=== PATIENT | male | born 1930 | race Caucasian/White ===

== ENCOUNTER 2016-09-02 20:11 | Inpatient (IN) | payer MEDICAID ==
[~2016-09-02] VITALS: Ht 160 cm; Wt 66.7 kg
[~2016-09-02 20:11] MED LIST: ACET500C54 PO; ASPI81CT2 PO; CARB1ODT4 PO; FINA5TAB1 PO; METF850T PO; SIMV20TA1 PO; TAMS0.4C96 PO; VAS10 PO
[2016-09-02 20:31] VITALS: BP 133/54
--- NOTE | 2016-09-02 21:00 | NUR ---
Patient ambulated to bed 3 at this time.
--- NOTE | 2016-09-02 21:15 | NUR ---
85Y M BIB FAMILY FOR SOB / DIZZINESS X 1 WEEK; ACCU CK IN TRIAGE : 116, EKG DONE IN TRIAGE PT DENIES ANY N/V/D AT THE MOMENT. PT BREATHING IS UNLABORED AND CLEAR BILAT. PT HAS IRREGULAR HEARTBEAT. MED HX: PARKINSON/ASTHMA/DIABETES/PROSTATE AND DEPRESSION
[2016-09-02] MEDS ORDERED: NACL 0.9% 1,000 ML IV ONE (21:30)
[2016-09-02 21:51] LABS: BASOPHILS # (AUTO) 0.1 K/uL (0.00-0.22); BASOPHILS % (AUTO) 1.3 % (0.0-2.0); EOSINOPHILS # (AUTO) 0.4 K/uL (0-0.4); EOSINOPHILS % (AUTO) 3.7 % (0.0-4.0); HEMATOCRIT 39.7 % (36-52); HEMOGLOBIN 12.9 g/dL (12.0-18.0); LYMPHOCYTES # (AUTO) 2.5 K/uL (2.0-11.5); LYMPHOCYTES % (AUTO) 25.4 % (20.5-51.1); MEAN CORPUSCULAR HEMOGLOBIN 29 pg (27-31); MEAN CORPUSCULAR HGB CONC 33 g/dL (33-37); MEAN CORPUSCULAR VOLUME 90 fL (80-94); MONOCYTES % (AUTO) 10.1 % (1.7-9.3); NEUTROPHILS # (AUTO) 5.6 K/uL (1.8-7.7); NEUTROPHILS % (AUTO) 59.5 % (42.2-75.2); PLATELET COUNT (AUTO) 313 K/uL (140-450); RED BLOOD CELL COUNT(AUTO) 4.43 MIL/uL (4.20-6.10); RED CELL DISTRIBUTION WIDTH 14.4 % (11.6-13.7); WHITE BLOOD COUNT (AUTO) 9.6 K/uL (4.8-10.8)
[2016-09-02 22:05] LABS: ANION GAP 11.7 (8-16); CALCIUM 8.5 mg/dL (8.5-10.1); CARBON DIOXIDE 29.8 mmol/L (21-32); CHLORIDE 106 mmol/L (98-107); CREATININE 1.1 mg/dL (0.7-1.3); GLUCOSE 99 mg/dL (74-106); POTASSIUM 5.5 mmol/L (3.5-5.1); SODIUM SERUM 142 mmol/L (136-145); UREA NITROGEN, BLOOD 18 mg/dL (7-18)
[2016-09-02 22:10] LABS: PARTIAL THROMBOPLASTIN TIME 28.2 secs (22-35.6); PROTHROMBIN TIME 10.4 secs (10.8-13.4)
[2016-09-02 22:11] LABS: ALANINE AMINOTRANSFERASE 16 U/L (16-63); ALBUMIN 3.6 g/dL (3.4-5.0); ALKALINE PHOSPHATASE 72 U/L (46-116); ASPARTATE AMINOTRANSFERASE 13 U/L (15-37); TOTAL BILIRUBIN 0.4 mg/dL (0.0-1.0)
[2016-09-02] MEDS ORDERED: CALCIUM CHLORIDE 10% 100 MG/ML SYR IVP ONE (22:15)
[2016-09-02] MEDS ORDERED: SODIUM POLYSTYRENE 15 GM/60 ML UDBTL PO ONE (22:15)
[2016-09-02 22:16] LABS: LACTIC ACID 2.4 mmol/L (0.4-2.0)
[2016-09-02] MEDS ORDERED: NACL 0.9% 2,000 ML IV ONE (22:20)
[2016-09-02] MEDS: NACL 0.9% 1,000 ML IV SCH (22:39)
[2016-09-02] MEDS ORDERED: HYDROcodone/APAP 7.5/325 MG 1 TAB PO PRN (22:40)
[2016-09-02] MEDS ORDERED: ONDANSETRON 4 MG/2 ML VIAL IM/IVP PRN (22:40)
[2016-09-02] MEDS ORDERED: MORPHINE SULFATE 2 MG/ML SYR IVP PRN (22:40)
[2016-09-02] MEDS ORDERED: DOCUSATE SODIUM 100 MG GELCAP PO PRN (22:40)
[2016-09-02] MEDS ORDERED: ACETAMINOPHEN 325 MG TAB PO PRN (22:40)
--- NOTE | 2016-09-02 23:13 | NUR ---
Patient will be admitted to care of DR CLEMENS. Admited to TELE 106A. Will go to room 106A. Belongings list completed. Report to AV[facility]IL [facility] .
[2016-09-02 23:16] LABS: APPEARANCE,URINE CLEAR (CLEAR); BILIRUBIN,URINE NEGATIVE (NEGATIVE); BLOOD, URINE NEGATIVE (NEGATIVE); COLOR,URINE YELLOW (YELLOW); LEUKOCYTE ESTERASE ,URINE NEGATIVE (NEGATIVE); NITRITE, URINE NEGATIVE (NEGATIVE); PH,URINE 5.5 (5.0-9.0); PROTEIN,URINE 2+ (NEGATIVE); UGLUCOSE NEGATIVE (NEGATIVE); UROBILINOGEN,URINE 0.2 EU/dL (0.2 - 1)
[2016-09-02 23:34] LABS: BACTERIA,URINE RARE /HPF (None Seen); HYALINE CASTS, URINE 0-3 /LPF (None Seen); MUCUS,URINE 3+ /LPF (None Seen); RBC,URINE 0-5 (RARE) /HPF (0-5); SQUAMOUS EPITHELIAL CELL,UR 0-3 (FEW) /LPF (0-3 (FEW)); WBC,URINE 0-5 (RARE) /HPF (0-5)
[2016-09-02 23:50] VITALS: BP 148/68
--- NOTE | 2016-09-02 23:50 | NUR ---
Admitted from ER, with chief complaint of SHORTNESS OF BREATH, DX SOB. PT'S FAMILY AT BEDSIDE. ADMISSION ASSESSMENT COMPLETED WITH MANAGER GRAPHIC PHONE. 85 y/o, Male, Cooperative, AOX3, ABLE TO VERBALIZE NEEDS. GENERALIZED WEAKNESS NOTED, MORE ON RIGHT ARM WEAKNESS. PT DENIES CHEST PAIN AT THIS TIME. PT DENIES SOB OR S/S OF ACUTE DISTRESS. HOME HEALTH AIDE CAREGIVER IN PLACE. MULTIPLE DRY SCABS AND DISCOLORATION NOTED ON BACK AND BUTTOCKS. DRY SCAB ON LEFT TOE. IV ACCESS ASYMPTOMATIC, PATENT AND INTACT. REMAINING IVF INFUSING WELL. oriented to call light, bed, phone,television, bathroom, smoking policy, visiting hours, procedures, ID bracelet on. Belongings list checked. DISCUSSED AND REVIEWED PLAN OF CARE WITH PT AND PT'S FAMILY. PT VERBALIZED UNDERSTANDING. SAFETY MEASURES ENSURED. CALL LIGHT WITHIN REACH. WILL CONTINUE TO MONITOR.
[2016-09-03] MEDS ORDERED: INSULIN LISPRO SLIDING SCALE 100 UNITS/ML VIAL SUBQ PRN (01:05)
[2016-09-03] MEDS ORDERED: DEXTROSE 50% 50 ML SYR IVP PRN (01:05)
[2016-09-03] MEDS ORDERED: ALBUTEROL SULFATE/IPRATROPIU 3 ML SOL IH PRN ×2 (01:05→12:53)
[2016-09-03 01:27] LABS: CHOL/HDL RATIO 2.6 (1-4.5); PHOSPHORUS 4.7 mg/dL (2.5-4.9)
[2016-09-03 01:28] LABS: FREE T4 (FREE THYROXINE) 1.14 ng/dL (0.76-1.46); THYROID STIMULATING HORMONE 0.54 uIU/mL (0.34-3.74)
--- NOTE | 2016-09-03 02:00 | NUR ---
PT HAD A LARGE, LOOSE BM. PT CLEANED. PT TURNED AND REPOSITIONED, OFFLOADED PRESSURE AREAS. PT TOLERATED WELL. ALL NEEDS MET. SAFETY MEASURES ENSURED. CALL LIGHT WITHIN REACH.
[2016-09-03 03:05] LABS: BLOOD GAS PCO2 37.2 mmHg (20-50)
[2016-09-03 03:06] LABS: BLOOD GAS BASE EXCESS -4.9 mmol/L (-2.0-2.0); BLOOD GAS HCO3 20.1 mmol/L; BLOOD GAS O2 SAT% 95.8 % (92.0-98.5); BLOOD GAS PO2 86.5 mmHg
--- NOTE | 2016-09-03 03:19 | NUR ---
ABG DONE WITH NO INCIDENT. RESULTS GIVEN TO DR DIAL. WILL CONTINUE TO MONITOR.
[2016-09-03 04:00] VITALS: BP 153/75
--- NOTE | 2016-09-03 04:00 | NUR ---
PT SLEEPING. CONDITION STABLE. ALL NEEDS MET. SAFETY MEASURES ENSURED. CALL LIGHT WITHIN REACH.
--- NOTE | 2016-09-03 05:00 | NUR ---
NOTIFIED BY CHIEF ELECTRICIAN THAT HR WENT DOWN TO 37. CHECKED ON PT, PT IS SLEEPING, VS TAKEN; TEMP 97.7, BP 153/75, HR 53, RR 16, SPO2 98% AT ROOM AIR. CONDITION STABLE. WILL NOTIFY MD, WILL CONTINUE TO MONITOR.
--- NOTE | 2016-09-03 05:40 | NUR ---
PT TAKEN TO CT. PT ABLE TO TRANSFER FROM BED TO CT INDEPENDENTLY. PT TOLERATED WELL. PT TAKEN BACK TO BED. CONDITION STABLE. ALL NEEDS MET. SAFETY MEASURES ENSURED. CALL LIGHT WITHIN REACH.
--- NOTE | 2016-09-03 06:25 | NUR ---
RECEIVED CALL FROM [facility]. RESULTS FROM CT HEAD RECEIVED. CALLED DR COKER, MADE MD AWARE OF RESULTS OF CT HEAD. ALSO MADE MD AWARE OF NPO ORDER AT THIS TIME. MD TO CLARIFY ORDER. NO FURTHER ORDERS RECEIVED.
[2016-09-03 06:50] LABS: BASOPHILS # (AUTO) 0.3 K/uL (0.00-0.22); BASOPHILS % (AUTO) 2.9 % (0.0-2.0); EOSINOPHILS # (AUTO) 0.2 K/uL (0-0.4); EOSINOPHILS % (AUTO) 2.5 % (0.0-4.0); HEMATOCRIT 38.6 % (36-52); HEMOGLOBIN 12.8 g/dL (12.0-18.0); LYMPHOCYTES # (AUTO) 1.5 K/uL (2.0-11.5); LYMPHOCYTES % (AUTO) 15.7 % (20.5-51.1); MEAN CORPUSCULAR HEMOGLOBIN 30 pg (27-31); MEAN CORPUSCULAR HGB CONC 33 g/dL (33-37); MEAN CORPUSCULAR VOLUME 90 fL (80-94); NEUTROPHILS # (AUTO) 6.7 K/uL (1.8-7.7); NEUTROPHILS % (AUTO) 68.9 % (42.2-75.2); PLATELET COUNT (AUTO) 306 K/uL (140-450); RED CELL DISTRIBUTION WIDTH 14.3 % (11.6-13.7); WHITE BLOOD COUNT (AUTO) 9.7 K/uL (4.8-10.8)
[2016-09-03] MEDS: BLOOD GLUCOSE MONITORING 1 DEV DEV FS SCH ×4 (06:51→20:32)
--- NOTE | 2016-09-03 06:53 | NUR ---
BLOOD SUGAR 103, NO INSULIN COVERAGE NEEDED. ALL NEEDS MET. SAFETY MEASURES ENSURED. CALL LIGHT WITHIN REACH.
[2016-09-03 07:10] LABS: MAGNESIUM 1.6 mg/dL (1.8-2.4); PHOSPHORUS 3.3 mg/dL (2.5-4.9)
--- NOTE | 2016-09-03 07:10 | NUR ---
RECEIVED PATIENT REPORT AT BEDSIDE. PATIENT AWAKE, ALERT AND ORIENTED. NO S/S OF DISTRESS NOTED. NO C/O PAIN. PATIENT ON ROOM AIR. IV LINE NOTED TO THE RIGHT FOREARM WITH IVF INFUSING WELL. PATIENT ON TELE MONITORING. BED LOWERED WITH CALL LIGHT WITHIN REACH. WILL CONTINUE TO MONITOR
[2016-09-03 07:11] LABS: ANION GAP 12.8 (8-16); CALCIUM 8.4 mg/dL (8.5-10.1); CARBON DIOXIDE 26.9 mmol/L (21-32); CHLORIDE 108 mmol/L (98-107); CREATININE 0.9 mg/dL (0.7-1.3); GLUCOSE 111 mg/dL (74-106); POTASSIUM 4.7 mmol/L (3.5-5.1); SODIUM SERUM 143 mmol/L (136-145); UREA NITROGEN, BLOOD 14 mg/dL (7-18)
[2016-09-03] MEDS: ALBUTEROL SULFATE/IPRATROPIU 3 ML SOL IH SCH ×3 (07:35→19:48)
[2016-09-03 08:00] VITALS: BP 147/67
[2016-09-03] MEDS: ASPIRIN 81 MG TAB.CHEW PO SCH (08:50)
[2016-09-03] MEDS: CARBIDOPA/LEVODOPA 25/100 MG 1 TAB PO SCH ×2 (08:51→20:32)
[2016-09-03] MEDS: FINASTERIDE 5 MG TAB PO SCH (08:51)
[2016-09-03] MEDS: metFORMIN 850 MG TAB PO SCH ×3 (08:51→17:41)
[2016-09-03] MEDS: SIMVASTATIN 20 MG TAB PO SCH (08:51)
[2016-09-03] MEDS ORDERED: ENALAPRIL 10 MG TAB PO SCH (09:00)
[2016-09-03] MEDS ORDERED: LEVODOPA PO SCH (09:00)
[2016-09-03] MEDS ORDERED: CARBIDOPA PO SCH (09:00)
--- NOTE | 2016-09-03 09:13 | NUR ---
PATIENT HAS BEEN SCREENED AND CATEGORIZED MODERATE NUTRITION RISK. PATIENT WILL BE SEEN WITHIN 3-5 DAYS OF ADMISSION. 09/05/16-09/07/[address]
[2016-09-03] MEDS ORDERED: MAG SULF 2000 MG/WATER PREMIX 50 ML IV SCH (09:45)
--- NOTE | 2016-09-03 11:32 | NUR ---
P.T. NOTES INITIAL EVAL DONE; REFER TO EVAL FOR DETAILS; TRY STAIR TRNG NEXT TX IF ABLE; CALLED Pt's (KIERSTEN) #[phone] FOR FAMILY TRNG, CASE MGMT (ALEENA) COMMUNICATED, ABLE TO COME IN TOMORROW 09/04/16Wednesday 9 AM; FOLLOW UP TOMORROW.
[2016-09-03 12:00] VITALS: BP_SYST 133; BP_SYST 134; BP_SYST 139; BP_DIAS 65; BP_DIAS 69; BP_DIAS 75
[2016-09-03] MEDS ORDERED: PSEUDOEPHEDRINE 30 MG TAB PO PRN (14:45)
--- NOTE | 2016-09-03 14:50 | NUR ---
MADE DR HURLEY AWARE THAT PATIENT'S HR HAS GONE DOWN TO LOW 30s AT ONE POINT. ALSO INFORMED OF PATIENT'S C/O COUGH
[2016-09-03 16:00] VITALS: BP 112/66
--- NOTE | 2016-09-03 16:35 | NUR ---
PATIENT SEEN BY DR PAINTER
--- NOTE | 2016-09-03 19:11 | NUR ---
PATIENT REPORT GIVEN AT BEDSIDE. PATIENT ENDORSED IN STABLE CONDITION
--- NOTE | 2016-09-03 19:15 | NUR ---
RECEIVED REPORT FROM AM NURSE. PT RESTING IN BED, AOX4, ABLE TO VERBALIZE NEEDS. PT DENIES CHEST PAIN, SOB OR S/S OF ACUTE DISTRESS. SOCK TURNER IN PLACE. MULTIPLE SCABS AND DISCOLORATION NOTED. IV ACCESS ASYMPTOMATIC, PATENT AND INTACT. IVF INFUSING WELL. DISCUSSED AND REVIEWED PLAN OF CARE WITH PT. PT VERBALIZED UNDERSTANDING. ALL NEEDS MET. SAFETY MEASURES ENSURED. CALL LIGHT WITHIN REACH. WILL CONTINUE TO MONITOR.
[2016-09-03 20:00] VITALS: BP 132/55
--- NOTE | 2016-09-03 20:36 | NUR ---
BLOOD SUGAR 122, NO INSULIN COVERAGE NEEDED. ADMINISTERED DUE MEDICATIONS WITH EDUCATION. PT VERBALIZED UNDERSTANDING, TOLERATED MEDS WELL. ALL NEEDS MET. SAFETY MEASURES ENSURED. CALL LIGHT WITHIN REACH.
[2016-09-03] MEDS ORDERED: TAMSULOSIN 0.4 MG CAP PO SCH (21:00)
[2016-09-03] MEDS: NACL 0.9% 1,000 ML IV SCH (22:39)
[2016-09-04] VITALS: BP 137/65
--- NOTE | 2016-09-04 | NUR ---
PT SLEEPING. CONDITION STABLE. ALL NEEDS MET. SAFETY MEASURES ENSURED. CALL LIGHT WITHIN REACH. WILL CONTINUE TO MONITOR.
[2016-09-04 04:00] VITALS: BP 110/51
--- NOTE | 2016-09-04 04:39 | NUR ---
PT SLEEPING. CONDITION STABLE. ALL NEEDS MET. SAFETY MEASURES ENSURED. CALL LIGHT WITHIN REACH. WILL CONTINUE TO MONITOR.
[2016-09-04] MEDS: BLOOD GLUCOSE MONITORING 1 DEV DEV FS SCH ×2 (06:30→12:07)
--- NOTE | 2016-09-04 06:30 | NUR ---
BLOOD SUGAR 121, NO INSULIN COVERAGE NEEDED. ALL NEEDS MET. SAFETY MEASURES ENSURED. CALL LIGHT WITHIN REACH.
[2016-09-04 06:33] LABS: ANION GAP 12.8 (8-16); CALCIUM 7.7 mg/dL (8.5-10.1); CARBON DIOXIDE 26.3 mmol/L (21-32); CHLORIDE 105 mmol/L (98-107); CREATININE 0.8 mg/dL (0.7-1.3); GLUCOSE 108 mg/dL (74-106); POTASSIUM 4.1 mmol/L (3.5-5.1); SODIUM SERUM 140 mmol/L (136-145); UREA NITROGEN, BLOOD 9 mg/dL (7-18)
[2016-09-04 06:42] LABS: MAGNESIUM 1.6 mg/dL (1.8-2.4); PHOSPHORUS 3.9 mg/dL (2.5-4.9)
[2016-09-04] MEDS: ALBUTEROL SULFATE/IPRATROPIU 3 ML SOL IH SCH ×2 (07:18→12:51)
--- NOTE | 2016-09-04 07:21 | NUR ---
ENDORSED PLAN OF CARE TO AM NURSE. CONDITION STABLE.
--- NOTE | 2016-09-04 07:21 | NUR ---
RECEIVED PATIENT REPORT AT BEDSIDE. PATIENT CURRENTLY RECEIVING BREATHING TX. NO S/S OF DISTRESS NOTED. NO C/O PAIN AT THIS TIME. PATIENT ON TELE MONITORING. BED LOWERED WITH CALL LIGHT WITHIN REACH. WILL CONTINUE TO MONITOR
[2016-09-04 08:00] VITALS: BP 126/64
[2016-09-04] MEDS: ASPIRIN 81 MG TAB.CHEW PO SCH (08:25)
[2016-09-04] MEDS: CARBIDOPA/LEVODOPA 25/100 MG 1 TAB PO SCH (08:25)
[2016-09-04] MEDS: FINASTERIDE 5 MG TAB PO SCH (08:26)
[2016-09-04] MEDS: SIMVASTATIN 20 MG TAB PO SCH (08:26)
[2016-09-04] MEDS: metFORMIN 850 MG TAB PO SCH ×2 (08:26→13:09)
[2016-09-04] MEDS ORDERED: LOSARTAN 25 MG TAB PO SCH ×2 (09:00)
[2016-09-04 11:30] LABS: HEMOGLOBIN A1C 6.8 % (4.8-5.6); T4 (THYROXINE) 7.7 ug/dL (4.5 - 12.0)
[2016-09-04 12:00] VITALS: BP 118/56
[2016-09-04] MEDS ORDERED: MAGNESIUM OXIDE 400 MG TAB PO SCH (12:09)
[2016-09-04] MEDS ORDERED: OSC500 PO (14:24)
--- NOTE | 2016-09-04 15:26 | NUR ---
PATIENT DISCHARGED TO HOME. DISCHARGE INSTRUCTIONS AND DISCHARGE PRESCRIPTIONS GIVEN TO THE PATIENT AND TO THE PATIENT'S GRANDSON. PATIENT'S GRANDSON VERBALIZED UNDERSTANDING. IV LINE DISCONTINUED. TELE LEADS TAKEN OFF. PATIENT LEFT WITH ALL HIS BELONGINGS AND DISCHARGE PAPERS. PATIENT LEFT IN STABLE CONDITION
== END 2016-09-04 15:26 | disposition home or self-care (01) | DRG 48 ==
LOC: MED 20:11 → MTU 22:44
PROVIDERS: ADMIT Family Medicine; ATTEND Family Medicine
DX: G90.9 Disorder of the autonomic nervous system, unspecified (principal); N17.0 Acute kidney failure with tubular necrosis; E87.2 Acidosis; E11.65 Type 2 diabetes mellitus with hyperglycemia; D68.59 Other primary thrombophilia; E11.51 Type 2 diabetes mellitus with diabetic peripheral angiopathy without gangrene; I44.0 Atrioventricular block, first degree; G20 Parkinson's disease; E83.42 Hypomagnesemia; Z53.29 Procedure and treatment not carried out because of patient's decision for other reasons; E86.0 Dehydration; E83.51 Hypocalcemia; I44.4 Left anterior fascicular block; E87.5 Hyperkalemia; I25.10 Atherosclerotic heart disease of native coronary artery without angina pectoris; E78.5 Hyperlipidemia, unspecified; N40.0 Benign prostatic hyperplasia without lower urinary tract symptoms; I10 Essential (primary) hypertension; Z88.0 Allergy status to penicillin; Z79.899 Other long term (current) drug therapy; Z90.49 Acquired absence of other specified parts of digestive tract; Z79.82 Long term (current) use of aspirin; Z79.84 Long term (current) use of oral hypoglycemic drugs; Z87.891 Personal history of nicotine dependence
CPT/HCPCS: 36415; 36600; 70450; 71010; 80048; 80053; 81001; 82150; 82550; 82803; 82948; 83036; 83605; 83690; 83735; 83880; 84100; 84436; 84439; 84443; 84479; 84484; 85025; 85610; 85730; 87040; 87081; 87086; 93005; 93880; 93925; 93970; 94640; 96361; 96374; 97110; 97116; 97530; 99285; J1815; J3475; J7030; J7620; Q0092

== ENCOUNTER 2019-07-27 10:00 | Emergency (ER) | payer MEDICAID ==
[~2019-07-27] VITALS: Ht 165.1 cm; Wt 65.8 kg
[~2019-07-27 10:00] MED LIST changes: -ASPI81CT2 PO; +ENAL-197 PO; +OSC500 PO; -VAS10 PO; +[UNRECOGNIZED DRUG - CODE] PO
[2019-07-27 10:02] VITALS: BP 146/77
--- NOTE | 2019-07-27 10:10 | NUR ---
PT AMBULATED TO ER BED 03
--- NOTE | 2019-07-27 10:15 | NUR ---
PT BIB SON C/O GENERALIZED WEAKNESS, HIGH BLOOD SUGAR 580 X THIS MORNING CHECKED AT HOME, BG 136 UPON ASSESSMENT. PT ALSO REPORTS URINARY FREQUENCY AND CHEST HEAVINESS. PATIENT STATES PAIN OF 0/10 AT THIS TIME; VSS; PATIENT POSITIONED FOR COMFORT; HOB ELEVATED; BEDRAILS UP X1; BED DOWN. ER MADE AWARE OF PT STATUS. SON IS AT BEDSIDE. 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
[2019-07-27] MEDS ORDERED: NACL 0.9% 1,000 ML IV ONE (10:40)
[2019-07-27 11:10] LABS: BASOPHILS # (AUTO) 0.1 K/uL (0.00-0.22); BASOPHILS % (AUTO) 0.8 % (0.0-2.0); EOSINOPHILS # (AUTO) 0.2 K/uL (0-0.4); EOSINOPHILS % (AUTO) 3.1 % (0.0-4.0); HEMATOCRIT 39.6 % (36-52); LYMPHOCYTES # (AUTO) 1.8 K/uL (2.0-11.5); LYMPHOCYTES % (AUTO) 24.3 % (20.5-51.1); MEAN CORPUSCULAR HEMOGLOBIN 29 pg (27-31); MEAN CORPUSCULAR HGB CONC 33 g/dL (33-37); MEAN CORPUSCULAR VOLUME 89.3 fL (80-94); MONOCYTES # (AUTO) 0.7 K/uL (0.8-1.0); MONOCYTES % (AUTO) 9.6 % (1.7-9.3); NEUTROPHILS # (AUTO) 4.5 K/uL (1.8-7.7); NEUTROPHILS % (AUTO) 62.2 % (42.2-75.2); PLATELET COUNT (AUTO) 284 K/uL (140-450); RED BLOOD CELL COUNT(AUTO) 4.44 MIL/uL (4.20-6.10); RED CELL DISTRIBUTION WIDTH 14.9 % (11.6-13.7); WHITE BLOOD COUNT (AUTO) 7.2 K/uL (4.8-10.8)
[2019-07-27 11:23] LABS: APPEARANCE,URINE CLEAR (CLEAR); BILIRUBIN,URINE NEGATIVE (NEGATIVE); BLOOD, URINE NEGATIVE (NEGATIVE); COLOR,URINE YELLOW (YELLOW); LEUKOCYTE ESTERASE ,URINE NEGATIVE (NEGATIVE); NITRITE, URINE NEGATIVE (NEGATIVE); UGLUCOSE NEGATIVE (NEGATIVE)
[2019-07-27 11:23] LABS: ALBUMIN 3.1 g/dL (3.4-5.0); ANION GAP 13.7 (8-16); ASPARTATE AMINOTRANSFERASE 14 U/L (15-37); CHLORIDE 105 mmol/L (98-107); CREATININE 0.9 mg/dL (0.6-1.3); GLUCOSE 133 mg/dL (74-106); POTASSIUM 4.7 mmol/L (3.5-5.1); SODIUM SERUM 142 mmol/L (136-145); TOTAL BILIRUBIN 0.5 mg/dL (0.0-1.0); UREA NITROGEN, BLOOD 11 mg/dL (7-18)
[2019-07-27 11:34] LABS: AMYLASE 63 U/L (25-115); LIPASE 141 U/L (73-393)
[2019-07-27 11:43] LABS: RBC,URINE 0-5 /HPF (0-5)
[2019-07-27 11:44] LABS: WBC,URINE 0-5 /HPF (0-5)
--- NOTE | 2019-07-27 12:42 | NUR ---
Patient discharged with v/s stable. Written and verbal after care instructions given and explained. Patient verbalized understanding. Ambulatory with 4 WHEEL WALKER. SON AT SIDE. All questions addressed prior to discharge. Advised to follow up with PMD.
[2019-07-27 12:44] VITALS: BP 143/75
== END 2019-07-27 12:42 | disposition home or self-care (01) ==
LOC: MED 10:00
DX: R53.1 Weakness (principal); E11.9 Type 2 diabetes mellitus without complications; I10 Essential (primary) hypertension; Z95.0 Presence of cardiac pacemaker; Z88.0 Allergy status to penicillin; Z79.899 Other long term (current) drug therapy; Z53.33 Arthroscopic surgical procedure converted to open procedure; Z90.49 Acquired absence of other specified parts of digestive tract
CPT/HCPCS: 36415; 71045; 80053; 81001; 82150; 83690; 83880; 84484; 85025; 93005; 99285; J7030